=== PATIENT | female | born 1970 | race Caucasian/White ===

== ENCOUNTER 2018-09-26 10:41 | Outpatient (CLI) | payer OTHER ==
--- NOTE | 2018-09-26 13:32 | MMO ---
BILATERAL SCREENING MAMMOGRAM: History: Baseline study. This study is interpreted with the assistance of computer aided detection. FINDINGS: Scattered fibroglandular change of both breasts are present. There is no dominant mass, suspicious ca lcification or other signs of malignancy. Benign appearing calcifications are seen in the left periareolar region of the breast. IMPRESSION: BIRADS category 2 - benign findings. POS: [facility]
== END 2018-09-26 10:42 | disposition home or self-care (01) ==
LOC: SCSMAMMO 10:41
PROVIDERS: ATTEND Family Medicine
DX: Z12.31 Encounter for screening mammogram for malignant neoplasm of breast (principal)
CPT/HCPCS: 77067